=== PATIENT | male | born 1960 ===

== ENCOUNTER 2024-10-28 06:58 | Day surgery (SDC) | payer OTHER ==
[2024-10-28] MEDS ORDERED: fentaNYL CITRATE 50 MCG/ML AMPUL IV PUSH ONE (12:30)
[2024-10-28] MEDS ORDERED: DIPHENHYDRAMINE HCL 50 MG/ML VIAL 1ML IV ONE (12:30)
[2024-10-28] MEDS ORDERED: MIDAZOLAM HCL 2 MG/2 ML VIAL IV ONE (12:30)
== END 2024-10-28 15:15 | disposition home or self-care (01) ==
LOC: AMB-ENDOS 06:58
PROVIDERS: ATTEND Surgery
DX: D12.4 Benign neoplasm of descending colon (principal); K57.30 Diverticulosis of large intestine without perforation or abscess without bleeding